=== PATIENT | female | born 1950 | race Asian ===

== ENCOUNTER 2019-12-05 20:10 | Emergency (ER) | payer OTHER ==
[~2019-12-05] VITALS: Ht 157.5 cm; Wt 73.9 kg
[2019-12-05 20:15] VITALS: BP 160/92
--- NOTE | 2019-12-05 20:26 | NUR ---
pt ambulate to bed#11
--- NOTE | 2019-12-05 20:30 | NUR ---
sindi pd at bedside.
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
[2019-12-05] MEDS ORDERED: LIDOCAINE/EPI 1% 1:100000 20 ML VIAL INJ ONE (20:35)
[2019-12-05] MEDS ORDERED: NEOMYCIN/POLYMYXIN/BACITRACIN 0.9 GM/1 PKT TP ONE (20:35)
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
--- NOTE | 2019-12-05 21:29 | NUR ---
OFFICER Jelly HOYT FROM [facility] [address] AT BEDSIDE.
--- NOTE | 2019-12-05 21:34 | NUR ---
[facility] BEDSIDE EVALUATING PT
--- NOTE | 2019-12-05 21:38 | NUR ---
[facility] AT BEDSIDE FOR LACERATION PROCEDURE.
--- NOTE | 2019-12-05 22:20 | NUR ---
Patient discharged with v/s stable. Written and verbal after care instructions given and explained. Patient alert, oriented and verbalized understanding of instructions. Ambulatory with steady gait. All questions addressed prior to discharge. ID band removed. Patient advised to follow up with PMD. Rx of bacitration given. Patient educated on indication of medication including possible reaction and side effects. Opportunity to ask questions provided and answered.
[2019-12-05 22:42] VITALS: BP 131/73
== END 2019-12-05 22:20 | disposition home or self-care (01) ==
LOC: MED 20:40
DX: S01.81XA Laceration without foreign body of other part of head, initial encounter (principal); I10 Essential (primary) hypertension; X99.1XXA Assault by knife, initial encounter; Y93.89 Activity, other specified; Y92.89 Other specified places as the place of occurrence of the external cause; Y99.8 Other external cause status
CPT/HCPCS: 12041; 99284; J2001; 13131; 99282